=== PATIENT | female | born 1995 | race Caucasian/White ===

== ENCOUNTER 2016-10-10 20:20 | Emergency (ER) | payer OTHER ==
[~2016-10-10] VITALS: Ht 157.5 cm; Wt 55.2 kg
[2016-10-10 20:23] VITALS: TEMP 37.1; Ht 157.5 cm; Wt 55.2 kg
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
--- NOTE | 2016-10-10 21:44 | DIAGNOSTIC IMAGING REPORT ---
CHEST 2 VIEWS ROUTINE CLINICAL HISTORY: Cough. COMPARISON STUDY: Chest radiograph September 02, 2013 FINDINGS: Lung volumes are normal. Lungs are clear. There is no pneumothorax or pleural effusion. Cardiac size is normal. Mediastinal contours are normal. There is no evidence of pulmonary edema. IMPRESSION: No acute cardiopulmonary findings. Electronically signed by: Antonio Marte M.D. 10/10/2016 9:42 PM Dictated Date/Time: 10/10/2016 9:42 PM
[2016-10-10] MEDS ORDERED: ALBUTEROL HFA 8 GM INHALER INH STA (22:24)
[2016-10-10 23:26] VITALS: BP 93/75; PULSE 68; O2SAT 100
== END 2016-10-10 23:36 | disposition home or self-care (01) ==
LOC: C.EDB 20:21 → C.EDA 23:36
DX: R05 Cough (principal); R07.89 Other chest pain

== ENCOUNTER 2017-07-22 02:29 | Emergency (ER) | payer SELFPAY ==
[~2017-07-22] VITALS: Ht 157.5 cm; Wt 55.2 kg
[2017-07-22 02:34] VITALS: TEMP 36.6; Ht 157.5 cm; Wt 55.2 kg
[2017-07-22] MEDS ORDERED: ALUMINUM/MAGNESIUM SUSP 30 ML UDC PO STA (02:47)
[2017-07-22] MEDS ORDERED: LIDOCAINE HCL 2% VISC SOLN 20 ML UDC PO STA (02:47)
[2017-07-22 02:55] VITALS: O2SAT 96
[2017-07-22 03:07] LABS: BASO % 0.2 %; BASO ABS # 0.02 K/uL (0-0.2); COMPLETE YES; EOS % 0.6 %; HEMATOCRIT 36.8 % (37-47); IG% 0.1 %; LYMPH % 19.3 %; LYMPH ABS # 2.11 K/uL (1.2-3.4); MEAN CELL VOLUME 87.8 fL (80-100); MEAN CORPUSCULAR HEMOGLOBIN 29.8 pg (25-34); MEAN PLATELET VOLUME 9.1 fL (7.4-10.4); MONO % 6.2 %; NEUT % 73.6 %; PLATELET COUNT 365 K/uL (130-400); RED BLOOD COUNT 4.19 M/uL (4.2-5.4); WHITE BLOOD COUNT 10.94 K/uL (4.8-10.8)
[2017-07-22 03:25] LABS: ALT/SGPT 16 U/L (12-78); AST/SGOT 14 U/L (15-37); BLOOD UREA NITROGEN 5 mg/dl (7-18); BUN/CREATININE RATIO 9.3 (10-20); CARBON DIOXIDE 24 mmol/L (21-32); CHLORIDE 108 mmol/L (98-107); CREATININE 0.55 mg/dl (0.60-1.20); GLUCOSE 96 mg/dl (70-99); POTASSIUM 3.4 mmol/L (3.5-5.1); SODIUM 137 mmol/L (136-145)
[2017-07-22 03:28] LABS: ALKALINE PHOSPHATASE 62 U/L (45-117)
[2017-07-22 03:55] LABS: PREG INTERNAL NEGATIVE QC NEG CLEAR BACKGROUND; PREG INTERNAL POSITIVE QC POS CONTROL LINE
[2017-07-22] MEDS ORDERED: PANTOprazole SOD 40 MG TAB PO STA (04:04)
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
[2017-07-22] MEDS ORDERED: PANT40TA PO (04:23)
[2017-07-22 04:48] VITALS: BP 119/73; PULSE 81; O2SAT 97
--- NOTE | 2017-07-22 07:12 | DIAGNOSTIC IMAGING REPORT ---
SINGLE VIEW CHEST CLINICAL HISTORY: Atypical chest pain. FINDINGS: An AP, portable, upright chest radiograph is compared to study dated 10/10/16. The cardiomediastinal silhouette is unremarkable. The lungs and pleural spaces are clear. No pneumothorax is seen. The bony thorax is grossly intact. IMPRESSION: No active disease in the chest. Electronically signed by: Galdino Wilhelm M.D. 07/22/2017 7:11 AM Dictated Date/Time: 07/22/2017 7:10 AM
== END 2017-07-22 04:49 | disposition home or self-care (01) ==
LOC: C.EDB 02:30 → C.EDA 04:49
DX: R07.2 Precordial pain (principal)

== ENCOUNTER 2017-10-11 15:19 | Emergency (ER) | payer SELFPAY ==
[~2017-10-11] VITALS: Ht 157.5 cm; Wt 56.4 kg
[2017-10-11 15:23] VITALS: Ht 157.5 cm; Wt 56.4 kg
[2017-10-11] MEDS ORDERED: FAMOTIDINE 20 MG TAB PO ONE (15:45)
[2017-10-11 17:29] VITALS: BP 110/66; PULSE 99; TEMP 36.9; O2SAT 99
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
== END 2017-10-11 17:30 | disposition home or self-care (01) ==
LOC: C.EDB 15:20
DX: T78.40XA Allergy, unspecified, initial encounter (principal); X58.XXXA Exposure to other specified factors, initial encounter; H44.009 Unspecified purulent endophthalmitis, unspecified eye; Z88.0 Allergy status to penicillin; Z83.3 Family history of diabetes mellitus